=== PATIENT | female | born 1950 | race Caucasian/White ===

== ENCOUNTER 2025-04-12 15:34 | Emergency (ER) | payer MEDICARE, SELFPAY ==
[2025-04-12 15:35] VITALS: BP 109/78; PULSE 77; RESP 18; TEMP 36.9; O2SAT 100; BMI 29.2
--- NOTE | 2025-04-12 15:53 | EDS_ITS ---
HPI HPI - Fall History of Present Illness Chief Complaint: Trauma Informant: patient, spouse/S.O. and EMS Narrative Narrative: Patient brought by EMS just after a fall from height. She states she was up on a ladder around 15 feet helping her with something on a flagpole, the ladder lost balance and she fell off landing on her feet and then collapsing over onto the ground. She does not think she hit her head. She remembers fe eling numb and tingly in all 4 distal extremities although she states that is gone now. She has some pain in her tailbone and back, and her right foot, left ankle. She denies loss of consciousness. No anticoagulants. Brought by EMS c- collar, backboarded. PFSH PFSH Allergy/AdvReac Type Severity Reaction Status Date / Time Penicillins (PCN) AdvReac Mild Rash Verified 04/12/25 15:35 Social History Smoking Status: Never smoker ROS ROS ED Constitutional Constitutional ED: Denies chills or fever(s) Eyes Eyes: Denies change in vision or diplopia ENT ENT ED: Denies ear pain, epistaxis, facial pain or rhinorrhea Cardiovascular Cardiovascular: Reports chest pain; Denies palpitations Respiratory/Chest Respiratory/Chest: Denies cough or dyspnea Gastrointestinal Gastrointestinal: Denies abdominal pain, diarrhea, melena, nausea or vomiting Genitourinary Genitourinary ED: Denies dysuria or hematuria Musculoskeletal Musculoskeletal: Reports back pain, extremity pain and neck pain Integumentary Denies abscess, Abrasions, laceration or rash Neurologic Neurologic: Reports paresthesias RUE, RLE, LUE and LLE; Denies confusion, headache(s) or weakness EXAM Physical Exam Const Vital Signs: 04/12/25 15:35 04/12/25 15:47 04/12/25 16:34 Temperature 98.5 F Temperature Source Oral Pulse Rate 77 87 Respiratory Rate 18 18 Respiratory Effort Normal Respiratory Depth Normal Respiratory Pattern Normal Blood Pressure 109/78 129/64 H Blood Pressure Mean 88 85 Pulse Ox 100 97 Oxygen Delivery Method Room Air Room Air Room Air 04/12/25 17:00 04/12/25 18:00 04/12/25 18:22 Temperature 98.3 F Temperature Source Pulse Rate 87 86 85 Respiratory Rate 18 15 12 Respiratory Effort Respiratory Depth Respiratory Pattern Blood Pressure 131/67 H 121/60 H 105/55 L Blood Pressure Mean 88 80 71 Pulse Ox 97 97 94 Oxygen Delivery Method Room Air Room Air Positive well nourished and well developed General Appearance ED: well developed and NAD HEENT Reports TM's clear and nasal mucous membranes and turbinates normal atraumatic Face and Sinus: Negative for facial tenderness Tympanic Membrane ED: Yes TM's clear Eyes PERRL and EOMs intact bilaterally Visual Acuity: other Other Details: no entrapment or pain with extraocular movements Neck Neck Narrative: Prehospital c-collar maintained. Tender in the C4-5 area no step-off. General: tenderness Chest Wall inspection of chest normal and palpation of chest normal Chest: symmetrical chest wall rise and tenderness sternum and xiphoid process; Negative for crepitus Resp normal respiratory effort and clear to auscultation bilaterally Percussion: other equal BS bilat Cardio no murmurs Rate: regular rate Rhythm: regular rhythm GI normal to inspection, nondistended, normoactive bowel sounds and soft to palpation GI Narrative: Tender throughout lower abdomen no guarding or rebound. No [place] sign no Roa Keller sign. Back/Spine normal ROM Cervical Spine: Negative for cervical spine tenderness Thoracic Spine / Upper Back: thoracic spinal tenderness other (Mildly in the midline lower thoracic spine no step-off or obvious signs of trauma.) Lumbar Spine / Lower Back: lumbar spinal tenderness L5 (And coccyx without crepitance) Extremity normal to inspection Extremity Narrative: Tenderness of both malleoli left ankle with some mild swelling no deformity. There is some pain in the left groin/hip when flexing at the hip but no other pain or tenderness in the left lower extremity. With regards to the right lower extremity she has tenderness in the fifth toe without deformity, and tenderness anterior right knee with pain although she is able to move it, and pain in the groin/hip with hip flexion but no deformity. Full range of motion throughout both upper extremities without any pain or limitation or bony tenderness or signs of trauma. Pelvis is stable to AP compression does not cause significant discomfort. General Extremety ED: Yes tenderness Neuro oriented x3, CN's II-XII intact bilaterally, moves all extremities, no focal motor deficits and no sensory deficits noted [place] Coma Scale: document GCS findings Spontaneous Obeys Commands Oriented 15 Sensorium / Orientation: awake and alert Psych mental status grossly normal and thought process normal Skin no wounds Lesions: no lesions Rashes: no rashes MDM MDM MDM Narrative Medical decision making narrative: Given the mechanism and the fact the patient has pain and/or tenderness in all areas of her torso including her abdomen, chest, neck, back, she was matson scanned. I reviewed the imaging and all of the results which I agree with. She has no acute neck fracture, however she does have acute compression fractures of L1 and L2 that appear to be superior inferior endplate compressions. At this time she is neurologically intact but given the fact that she had paresthesias throughout both arms and legs, I am leaving her neck collar intact right now. Differential includes central or anterior cord syndrome, neuropraxia, or other type of cord injury. With regards to her lower extremities, right knee x-ray 4 views mitral rotation are normal, right foot x-rays 3 views of my interpretation show no obvious displaced fractures, left ankle x-rays 3 views on my interpretation show possible nondisplaced talus fracture, radiology called this negative and called the others negative. I am not getting her up to bear weight and test the left ankle due to the aforementioned spine injuries. I discussed all this with the patient and her . I recommend consultation with the trauma center. She is a [facility] patient as an outpatient, and prefers to go to [facility] If she has the choice so I discussed with trauma and ED there. Last splinting the patient's left ankle short leg posterior splint, she had developed mild subungual hematoma of the right great toe which was tender to distal phalanx and the IPJ. Therefore obtain three-view left foot x-rays in addition to the ones we had already obtained, my interpretation there is no acute fracture there. The subungual hematoma is faint and mild, do not think she needs trephination is not severely painful unless it is palpated. Lab Data Attestation: I reviewed the patient's lab results. Labs: Laboratory Results - last 24 hr 04/12/25 04/12/25 16:50 17:25 WBC 11.9 H RBC 3.84 L Hgb 12.1 Hct 36.4 L MCV 94.8 MCH 31.5 MCHC 33.2 RDW Std Deviation 42.8 RDW Coeff of Kenneth 12.4 Plt Count 179 MPV 10.0 Immature Gran % (Auto) 1.800 H Neut % (Auto) 85.9 H Lymph % (Auto) 7.0 L [place] % (Auto) 4.5 Eos % (Auto) 0.4 Baso % (Auto) 0.4 Absolute Neuts (auto) 10.2 H Absolute Lymphs (auto) 0.83 Nucleated RBC % 0 PT 13.3 INR 1.0 APTT 22.1 L Sodium 139 Potassium 3.5 Chloride 106 Carbon Dioxide 18.9 L Anion Gap 15 BUN 17 Creatinine 0.77 Estim Creat Clear Calc 62.48 Est GFR (MDRD) Non-Af 80 BUN/Creatinine Ratio 21.9 H Glucose 119 H Calcium 8.3 Total Bilirubin 0.27 AST 68 H ALT 35 Alkaline Phosphatase 58 Total Protein 5.9 Albumin 3.7 Globulin 2.2 Albumin/Globulin Ratio 1.7 Urine Color Straw Urine Clarity Clear Urine pH 6.5 Ur Specific [place] 1.005 Urine Protein 15 H Urine Glucose (UA) Normal Urine Ketones Negative Urine Occult Blood 250 H Urine Nitrite Negative Urine Bilirubin Negative Urine Urobilinogen Normal Ur Leukocyte Esterase Negative Urine RBC 0-5 SEEN Urine WBC 0-5 SEEN Ur Squamous Epith Cells 0-5 SEEN Urine Bacteria 0 SEEN Urine Mucus 0 SEEN Radiography Diagnostic Testing: Clinical Impression(s) from Imaging Studies Brain CT 04/12/25 16:20 IMPRESSION: No acute intracranial abnormalities. Reading Location: [facility] Cervical Spine CT 04/12/25 16:20 IMPRESSION: No acute injury to the cervical spine. Reading Location: [facility] Chest/Abdomen/Pelvis CT 04/12/25 16:20 IMPRESSION: *Acute compression fractures of L1 and L2 as described. *Incidental hypodense lesion in the left upper quadrant jejunum (1.3 ??? 1.4 cm), contiguous with the bowel wall. *Differential includes enteric duplication cyst, submucosal cystic lesion, or cystic neoplasm Reading Location: [id number] Ankle X-Ray 04/12/25 16:30 IMPRESSION: No acute osseous abnormalities. Reading Location: [facility] Foot X-Ray 04/12/25 16:30 IMPRESSION: No acute osseous abnormalities. Reading Location: [id number] Knee X-Ray 04/12/25 16:30 IMPRESSION: No acute osseous abnormalities. Reading Location: [id number] Foot X-Ray 04/12/25 18:15 IMPRESSION: No acute osseous abnormalities. Reading Location: [facility] Rhythm Strip Rhythm Strip: Sinus Rhythm Rate: 85 Ectopy: None Management Discussion w/another healthcare provider: [place] Chief (trauma/EM, [facility]) Procedures Lower Extremity Splints Lower Extremity Splint: Orthoglass (short leg posterior; NVID after placement) Splint Fabrication: Fabricated Location: Left Critical Care Time Critical Care Time: Yes Critical care time (excluding procedures): 30-74 minutes (44 min), Including time spent:, Discussing w/Patient &/or Family/Python Architect, Discussing w/Consultants, Arranging Admission or Transfer and Performing Direct Patient Care at Bedside Discharge Plan Triage Chief Complaint: Trauma ED Provider: Marlon Boss Dx/Rx/DC Orders Clinical Impression: Closed compression fracture of L2 vertebra, Paresthesias, Fall from height of greater than 3 feet, Injury of ankle, left, Abdominal pain, lower, Acute chest wall pain Primary Care Provider: Mariano Nicole Referrals: Fausto Nuno MD [STAFF PHYSICIAN] - Print Language: [place] Disposition Disposition: Acute Care Hospital Discharge Location: [facility] Discharge Date/Time: 04/12/25 19:01
[2025-04-12] MEDS: 0.9% Normal Saline (1000mL) 1,000 ML 999 ML IV (15:59)
[2025-04-12] MEDS: fentaNYL 100 MCG/2 ML Ampul 50 MCG IV (15:59)
--- NOTE | 2025-04-12 16:20 | CT_ITS ---
PROCEDURE: BRAIN/HEAD WITHOUT CONTRAST 04/12/2025 REASON FOR EXAM: FALL/TRAUMA TECHNIQUE: BRAIN/HEAD WITHOUT CONTRAST Coronal and Sagittal reconstruction series were provided. One or more dose reduction techniques were used (e.g., Automated exposure control, adjustment of the mA and/or kV according to patient size, use of iterative reconstruction technique. RADIATION DOSE SUMMARY: CTDlvol: 25.41 mGy DLP: 3288.65 mGycm COMPARISON: None. FINDINGS: Brain: Extensive low density in the deep cerebral white matter most likely represents advanced chronic small vessel ischemic disease. No acute intracranial hemorrhage. No acute territorial infarction. No mass-effect or midline shift. CSF Spaces: Advanced generalized cerebral atrophy Sinuses/Mastoids: Clear at visualized levels Bones: No acute bony abnormalities. CT/Brain/Head without Contrast IMPRESSION: No acute intracranial abnormalities. Reading Location: [id number]
--- NOTE | 2025-04-12 16:20 | CT_ITS ---
PROCEDURE: SPINE CERVICAL WITHOUT CONTRAS 04/12/2025 REASON FOR EXAM: AXIAL LOADING INJURY/FALL, DIFFUSE BODY NUMBNESS TECHNIQUE: SPINE CERVICAL WITHOUT CONTRAS Coronal and Sagittal reconstruction series were provided. One or more dose reduction techniques were used (e.g., Automated exposure control, adjustment of the mA and/or kV according to patient size, use of iterative reconstruction technique. RADIATION DOSE SUMMARY: CTDlvol: 25.41 mGy DLP: 3288.65 mGycm COMPARISON: None. FINDINGS: Alignment: Normal alignment. Vertebrae: No acute bony abnormalities. Soft Tissues: No soft tissue abnormalities. Disc levels: Multilevel degenerate changes of the cervical spine predominantly at C5-C6 and C6-C7 where there is disc space narrowing, uncovertebral hypertrophy, facet joint arthropathy with severe bilateral foramina stenosis and mild canal stenosis. CT/Spine Cervical without Contras IMPRESSION: No acute injury to the cervical spine. Reading Location: [id number]
--- NOTE | 2025-04-12 16:20 | CT_ITS ---
PROCEDURE: CT CHEST, ABD, PEL W/CONTRAST 04/12/2025 REASON FOR EXAM: PAIN CHEST, LOWER ABD, T11-L1, FALL FROM HEIGHT TECHNIQUE: Chest, abdomen and pelvis CT with intravenous contrast. Coronal and Sagittal reconstruction series were provided. One or more dose reduction techniques were used (e.g., Automated exposure control, adjustment of the mA and/or kV according to patient size, use of iterative reconstruction technique. CONTRAST: Isovue 370 VOLUME: 98mL RADIATION DOSE SUMMARY: CTDlvol: 25 mGy DLP: 1309 mGycm FINDINGS: *Spine: Acute compression fractures of L1 and L2. Mild superior endplate compression deformity of L1. Mild superior and inferior endplate compression deformity of L2. Background spondylosis. *Chest/Soft Tissues: Peripheral soft tissues unremarkable. Mediastinum unremarkable. No pulmonary artery filling defects. Lungs are clear. Mild atherosclerosis. *Abdominal viscera: Liver, gallbladder, pancreas, spleen, and adrenal glands unremarkable. Kidneys enhance symmetrically; bilateral subcentimeter hypodense renal lesions too small to characterize. Urinary bladder unremarkable. Uterus surgically absent. *Bowel: Normal caliber large and small bowel. In the left upper quadrant, within the jejunum region, there is a 1.3 ??? 1.4 cm hypodense lesion contiguous with the bowel wall and not exophytic. No surrounding inflammatory change, obstruction, or adjacent abnormality. *Vessels: No acute vascular abnormality. * CT/CT Chest, Abd, Pel w/Contrast IMPRESSION: *Acute compression fractures of L1 and L2 as described. *Incidental hypodense lesion in the left upper quadrant jejunum (1.3 ??? 1.4 cm ), contiguous with the bowel wall. *Differential includes enteric duplication cyst, submucosal cystic lesion, or c ystic neoplasm Reading Location: [id number]
--- NOTE | 2025-04-12 16:30 | RAD_ITS ---
PROCEDURE: ANKLE MIN 3 VIEWS 04/12/2025 REASON FOR EXAM: INJURY TECHNIQUE: ANKLE MIN 3 VIEWS Laterality: Left COMPARISON: None. FINDINGS: Bones: No acute bony abnormalities. Joints: No dislocations. Soft tissues: No soft tissue abnormalities. RAD/Ankle min 3 Views IMPRESSION: No acute osseous abnormalities. Reading Location: [id number]
--- NOTE | 2025-04-12 16:30 | RAD_ITS ---
PROCEDURE: FOOT MIN 3 VIEWS 04/12/2025 REASON FOR EXAM: INJURY TECHNIQUE: FOOT MIN 3 VIEWS Laterality: Right COMPARISON: None. FINDINGS: Bones: No acute bony abnormalities. Joints: No dislocations. Soft tissues: No soft tissue abnormalities. RAD/Foot min 3 Views IMPRESSION: No acute osseous abnormalities. Reading Location: [id number]
--- NOTE | 2025-04-12 16:30 | RAD_ITS ---
PROCEDURE: KNEE 4 OR MORE VIEWS 04/12/2025 REASON FOR EXAM: INJURY TECHNIQUE: KNEE 4 OR MORE VIEWS Laterality: FINDINGS: No evidence of acute fracture or dislocation. The joint spaces are maintained. No knee joint effusion. RAD/Knee 4 or More Views IMPRESSION: No acute osseous abnormalities. Reading Location: [id number]
[2025-04-12 16:34] VITALS: BP 129/64; PULSE 87; RESP 18; O2SAT 97
[2025-04-12 16:59] LABS: Hematocrit 36.4 % (37-47); Hemoglobin 12.1 g/dL (12.0-15.0); Immature Granulocytes Count 0.210 X10^3/uL (0.0-0.0); Mean Corp Hgb Conc 33.2 g/dL (32-36); Mean Corpuscular Volume 94.8 fL (81-99); Mean Platelet Vol. 10.0 fl (6.2-12.0); NRBC Flagged by Analyzer 0 % (0-5); Platelet Count 179 K/mm3 (150-450); RBC Distribution Width CV 12.4 % (11.6-14.6); RBC Distribution Width SD 42.8 fl (35.1-43.9); Red Blood Count 3.84 M/mm3 (4.2-5.4); White Blood Count 11.9 K/mm3 (4.4-11.0)
[2025-04-12 17:00] VITALS: BP 131/67; PULSE 87; RESP 18; O2SAT 97
[2025-04-12 17:30] LABS: Mucous, Urine 0 SEEN /hpf (<or=2+)
[2025-04-12 17:37] LABS: Color, Urine Straw (Yellow); Glucose, Dipstick Normal (Normal); Ketone-Dipstick Negative (Negative); Leukocyte Esterase-Dipstick Negative /ul (Negative); Nitrite-Dipstick Negative (Negative); Occult Blood-Urine 250 /ul (Negative); Protein-Dipstick 15 mg/dl (Negative); Specific Gravity, Urine 1.005 (1.002-1.030); Urine Bilirubin Dipstick Negative (Negative)
[2025-04-12 17:38] LABS: Prothrombin Time (Protime)PT. 13.3 SECONDS (11.7-14.9)
[2025-04-12 17:39] LABS: Partial Thromboplast Time 22.1 Seconds (24.1-36.2)
[2025-04-12 18:00] VITALS: BP 121/60; PULSE 86; RESP 15; O2SAT 97
--- NOTE | 2025-04-12 18:15 | RAD_ITS ---
PROCEDURE: FOOT MIN 3 VIEWS 04/12/2025 REASON FOR EXAM: INJURY TECHNIQUE: FOOT MIN 3 VIEWS Laterality: Left COMPARISON: None. FINDINGS: Bones: No acute fractures. Joints: No dislocation. Soft tissues: Unremarkable. RAD/Foot min 3 Views IMPRESSION: No acute osseous abnormalities. Reading Location: [id number]
[2025-04-12 18:18] LABS: Red Blood Cells-Urine 0-5 SEEN /hpf (0-5); Squamous Epithelial Cells - UA 0-5 SEEN /hpf (5-10)
[2025-04-12 18:22] VITALS: BP 105/55; PULSE 85; RESP 12; TEMP 36.8; O2SAT 94
--- NOTE | 2025-04-12 18:33 | ED.RN ---
Report called to [facility] Nurse Rachael. All questions answered.
[2025-04-12 18:57] LABS: AST(SGOT) 68 U/L (<=31); Alanine Aminotransfer ALT/SGPT 35 U/L (<=34); Albumin, Serum 3.7 g/dL (3.4-4.8); Alkaline Phosphatase 58 U/L (35-104); Anion Gap 15 (5-15); BUN 17 mg/dL (4-19); BUN/Creat Ratio 21.9 RATIO (10-20); Calcium,Total 8.3 mg/dL (7.6-11.0); Carbon Dioxide 18.9 mmol/L (21.0-32.0); Chloride 106 mmol/L (98-108); Estimated Creatinine Clearance 62.48 ml/min (50-250); Globulin 2.2 g/dL (2.2-4.2); Glucose 119 mg/dL (70-99); Potassium 3.5 mmol/L (3.3-5.1)
== END 2025-04-12 19:01 | disposition short-term general hospital (02) ==
PROVIDERS: Emergency Provider Emergency Medicine; PCP Family Medicine; Visit Provider Emergency Medicine
DX: S32.020A Wedge compression fracture of second lumbar vertebra, initial encounter for closed fracture (principal); R10.30 Lower abdominal pain, unspecified; R20.2 Paresthesia of skin; M25.572 Pain in left ankle and joints of left foot; R07.89 Other chest pain; W11.XXXA Fall on and from ladder, initial encounter
CPT/HCPCS: 70450; 71260; 72125; 73564; 73610; 73630; 74177; 80053; 81001; 85025; 85610; 85730; 96361; 96374; 96375; 99285; Q9967; A4216; J2405